=== PATIENT | female | born 1950 | race Caucasian/White ===

== ENCOUNTER → 2019-12-02 | Outpatient (CLI) | payer OTHER ==
--- NOTE | 2019-12-02 11:29 | 2DMMODE ---
[place] [address] 2 D/M-MODE ECHOCARDIOGRAM Name: JOVITAJED Rosalina Room: [facility]#: [id number] Admission: 12/02/19 Attend Phys: Thai Mcintyre, Discharge: Date of : 46 Date of Service: 12/02/19 1128 Report #: [id number] THIS REPORT FOR: cc: Josefina Huynh Maggie M. DO Liston, Michael J. MD [facility] ~ APPROVED REPORT Study performed: 12/02/2019 08:58:43 EXAM: Comprehensive 2D, Doppler, and color-flow Echocardiogram Patient Location: Out-Patient BSA: 2.25 HR: 58 bpm BP: 136/78 mmHg Other Information Study Quality: Fair Indications Cardiomyopathy 2D Dimensions IVSd: 12.08 (7-11mm) LVOT Diam: 20.78 (18-24mm) LVDd: 62.18 mm PWd: 10.46 (7-11mm) Ascending Ao: 33.12 (22-36mm) LVDs: 49.09 (25-40mm) Aortic Root: 29.41 mm Volumes Left Atrial Volume (Systole) LA ESV Index: 20.30 mL/m2 Aortic Valve AoV Peak Sy.: 1.38 m/s AO Peak Gr.: 7.56 mmHg LVOT Max P.13 mmHg AO Mean Gr.: 4.80 mmHg LVOT Mean P.19 mmHg LVOT Max V: 0.73 m/s AO V2 VTI: 28.52 cm LVOT Mean V: 0.50 m/s AV (VTI): 1.98 cm2 LVOT V1 VTI: 16.61 cm Mitral Valve E/A Ratio: 0.64 [place] [address] 2 D/M-MODE ECHOCARDIOGRAM Name: JED HUSSEIN Room: [facility]#: [id number] Admission: 12/02/19 Attend Phys: Thai Mcintyre, Discharge: Date of : 46 Date of Service: 12/02/19 1128 Report #: [id number] MV Decel. Time: 265.21 ms MV E Max Sy.: 0.32 m/s MV PHT: 76.91 ms MVA (PHT): 2.86 cm2 TDI E/Lateral E': 3.20 E/Medial E': 4.57 Medial E' Sy.: 0.07 m/s Lateral E' Sy.: 0.10 m/s Pulmonary Valve PV Peak Sy.: 0.90 m/s PV Peak Gr.: 3.25 mmHg Tricuspid Valve RAP Estimate: 5.00 mmHg TR Peak Gr.: 21.34 mmHg RVSP: 26.34 mmHg PA Pressure: 26.34 mmHg Left Ventricle The left ventricle is normal size. There is global hypokinesis noted. There is normal left ventricular wall thickness. Left ventricular systolic function is moderately decreased. LVEF is 35-40%. Grade I - abnormal relaxation pattern. Right Ventricle The right ventricle is normal size. The right ventricular systolic function is normal. Atria Left atrium is mildly dilated. Right atrium is mildly dilated. Aortic Valve The Aortic valve is sclerotic. No aortic regurgitation is present. Mild aortic stenosis. Mitral Valve Mild mitral annular calcification. There is no mitral valve regurgitation noted. No evidence of mitral valve stenosis. Tricuspid Valve The tricuspid valve is normal in structure. Mild tricuspid regurgitation. No pulmonary hypertension. Pulmonic Valve The pulmonary valve is normal in structure. [place] [address] 2 D/M-MODE ECHOCARDIOGRAM Name: JED HUSSEIN Room: [facility]#: [id number] Admission: 12/02/19 Attend Phys: Thai Mcintyre, Discharge: Date of : 46 Date of Service: 12/02/19 1128 Report #: [id number] valvular regurgitation. Great Vessels The aortic root is normal in size. IVC is not well visualized. Pericardium There is no pericardial effusion. <Conclusion> The left ventricle is normal size. There is normal left ventricular wall thickness. Left ventricular systolic function is moderately decreased. LVEF is 35-40%. Grade I - abnormal relaxation pattern. Left atrium is mildly dilated. Right atrium is mildly dilated. The Aortic valve is sclerotic. Mild aortic stenosis. Mild tricuspid regurgitation. No pulmonary hypertension. <ELECTRONICALLY SIGNED> By: Thai Mcintyre MD, FACC 12/02/19 1128 1128 1128 Thai Mcintyre MD, FACC /INF
== END ==
LOC: M.CRD 09:00
PROVIDERS: ATTEND Internal Medicine Cardiovascular Disease
DX: I08.3 Combined rheumatic disorders of mitral, aortic and tricuspid valves (principal)

== ENCOUNTER → 2020-10-27 | Outpatient (CLI) | payer OTHER ==
[~2020-10-27] MED LIST: ASA81BEC PO; METFORMIN HCL500 MG PO; PREMPHASE 0.621 EAC1 PO; PROZAC20 M1 PO; XARELTO15 MG PO; XARELTO20 MG PO
[2020-10-27 15:44] LABS: ABSOLUTE EOSINOPHILS 0.5 thou/uL (0.0-0.7); ABSOLUTE LYMPHOCYTES 2.1 thou/uL (0.8-5.3); ABSOLUTE MONOCYTES 1.3 thou/uL (0.0-1.2); BASOPHILS 0.2 %; EOSINOPHILS 4.1 %; HEMATOCRIT 41.2 % (37.0-47.0); HEMOGLOBIN 14.1 gm/dL (12.0-15.0); LYMPHOCYTES 15.9 %; MCH 30.9 pg (26.0-34.0); MCHC 34.3 g/dL (28.0-37.0); MCV 90.2 fL (80.0-100.0); MONOCYTES 10.2 %; NUCLEATED RBCS 0 /100WBC; PLATELET COUNT* 728 thou/uL (150-400); POLYS 69.6 %; RBC 4.57 mil/uL (4.20-5.00); RDW-CV 14.1 % (10.5-14.5); WBC 12.9 thou/uL (4.0-11.0)
== END ==
LOC: M.RAD 15:24
PROVIDERS: ATTEND Internal Medicine Cardiovascular Disease
DX: R06.02 Shortness of breath (principal)

== ENCOUNTER 2020-10-28 10:13 | Emergency (ER) | payer OTHER ==
[~2020-10-28] VITALS: Ht 172.7 cm; Wt 118.8 kg
[2020-10-28] MEDS ORDERED: PROZAC20 M1 PO (10:26)
[2020-10-28] MEDS ORDERED: METFORMIN HCL500 MG PO (10:26)
[2020-10-28] MEDS ORDERED: ASA81BEC PO (10:26)
[2020-10-28] MEDS ORDERED: PREMPHASE 0.621 EAC1 PO (10:26)
[2020-10-28 10:49] LABS: ABSOLUTE BASOPHILS 0.1 thou/uL (0.0-0.2); ABSOLUTE EOSINOPHILS 0.5 thou/uL (0.0-0.7); ABSOLUTE LYMPHOCYTES 1.9 thou/uL (0.8-5.3); ABSOLUTE MONOCYTES 1.1 thou/uL (0.0-1.2); ABSOLUTE NEUTROPHILS 7.5 thou/uL (1.6-8.1); BASOPHILS 1.3 %; EOSINOPHILS 4.2 %; HEMATOCRIT 39.7 % (37.0-47.0); HEMOGLOBIN 13.3 gm/dL (12.0-15.0); LYMPHOCYTES 16.9 %; MCH 30.3 pg (26.0-34.0); MCHC 33.4 g/dL (28.0-37.0); MCV 90.8 fL (80.0-100.0); MONOCYTES 9.7 %; MPV 8.2 fl. (7.2-11.1); NUCLEATED RBCS 0 /100WBC; POLYS 67.9 %; RBC 4.37 mil/uL (4.20-5.00); RDW-CV 14.1 % (10.5-14.5); WBC 11.1 thou/uL (4.0-11.0)
[2020-10-28 10:50] LABS: PLATELET COUNT* 652 thou/uL (150-400)
[2020-10-28 11:00] LABS: CALCIUM 9.1 mg/dL (8.5-10.1); CREATININE 1.2 mg/dL (0.6-1.3); POTASSIUM 4.6 mmol/L (3.5-5.1)
[2020-10-28 11:05] LABS: ALBUMIN 3.5 g/dL (3.4-5.0); TOTAL BILIRUBIN 1.3 mg/dL (<0.1-1.0); TOTAL PROTEIN 7.9 g/dL (6.4-8.2)
[2020-10-28] MEDS ORDERED: XARELTO20 MG PO (13:54)
[2020-10-28] MEDS ORDERED: XARELTO15 MG PO (13:54)
[2020-10-28 14:31] VITALS: BP 120/55
--- NOTE | 2020-10-28 14:35 | EKG ---
[place] [address] ELECTROCARDIOGRAM REPORT Name: JED HUSSEIN Room: [facility]#: [id number] Admission: 10/28/20 Attend Phys: Discharge: 10/28/20 Date of : 46 Date of Service: 10/28/20 1052 Report #: [id number] THIS REPORT FOR: //name// [facility] ED Test Date: 2020-10-28 Test Time: 10:52:15 Pat Name: JED HUSSEIN Department: Room: Gender: [employer] Operator: : [id number] Requested By: Bryson Marroquin Order Number: [id number] MD: Kenny Bojorquez Measurements Intervals [place] Rate: 65 P: 4 TX: 217 QRS: -53 QRSD: 121 T: 1 QT: 482 QTc: 502 Interpretive Statements Sinus rhythm Borderline prolonged TX interval Nonspecific IVCD with LAD Left ventricular hypertrophy No previous ECG available for comparison Electronically Signed On 10-28-2020 14:35:04 CDT by Kenny Bojorquez [email or web address] <ELECTRONICALLY SIGNED> By: Kenny Bojorquez MD, [facility] WITH [facility] 10/28/20 1435 1052 1052 Kenny Bojorquez MD, [facility]GED WITH [facility] /EPI
== END 2020-10-28 14:31 | disposition home or self-care (01) ==
LOC: M.ERS 10:13
PROVIDERS: Family Medicine
DX: I26.99 Other pulmonary embolism without acute cor pulmonale (principal); E11.9 Type 2 diabetes mellitus without complications; I10 Essential (primary) hypertension; Z90.49 Acquired absence of other specified parts of digestive tract; Z90.89 Acquired absence of other organs; Z79.82 Long term (current) use of aspirin; Z79.84 Long term (current) use of oral hypoglycemic drugs